=== PATIENT | male | born 1990 | race Caucasian/White ===

== ENCOUNTER 2021-08-05 00:33 | Emergency (ER) | payer OTHER ==
[~2021-08-05] VITALS: Ht 175.3 cm; Wt 98.5 kg
--- OUTSIDE RECORDS SUMMARY | 2021-08-05 00:40 | CCD ---
Author Author [facility] Organization [facility] Address Unknown Phone Unavailable Support Name Relationship Address Phone [facility] Next Of Kin [address] [place] [address] SHELIA PEREIRA Next Of Kin [address] [place] [address] [facility] E4 Next Of Kin [address] [place] [address] Unavailable [place] Next Of Kin Unknown [place] Next Of Kin Unknown Re-disclosure Warning The records that you are about to access may contain information from federally-assisted alcohol or drug abuse programs. If such information is present, then the following federally mandated warning applies: This information has been disclosed to you from records protected by federal confidentiality rules (42 CFR part 2). The federal rules prohibit you from making any further disclosure of this information unless further disclosure is expressly permitted by the written consent of the person to whom it pertains or as otherwise permitted by 42 CFR part 2. A general authorization for the release of medical or other information is NOT sufficient for this purpose. The Federal rules restrict any use of the information to criminally investigate or prosecute any alcohol or drug abuse patient.The records that you are about to access may contain highly sensitive health information, the redisclosure of which is protected by Article 27-F of the [place] Public Health law. If you continue you may have access to information: Regarding HIV / AIDS; Provided by facilities licensed or operated by the [facility] Office of Mental Health; or Provided by the [facility] Office for People With Developmental Disabilities. If such information is present, then the following [facility] mandated warning applies: This information has been disclosed to you from confidential records which are protected by state law. State law prohibits you from making any further disclosure of this information without the specific written consent of the person to whom it pertains, or as otherwise permitted by law. Any unauthorized further disclosure in violation of state law may result in a fine or fpc sentence or both. A general authorization for the release of medical or other information is NOT sufficient authorization for further disc losure. Family History Family Member Name Family Member Gender Family Member Status Date o f Status Description Data Source(s) Unknown Unknown Problem [facility] ([facility]) Medications No Information Insurance Providers Payer name Policy type / Coverage type Policy ID Covered alliance party ID Covered alliance party's relationship to samuel Policy Samuel Plan Information [employer] [id number] SP [id number] [place] [id number] 18 [id number] ADMINSTRATION -O/P [id number] 18 [id number] BCBS/Blue Card Commercial [id number] Self [id number] N REGIONAL CLAIMS DUC-O/P [id number] 18 [id number] Problems, Conditions, and Diagnoses No Information Surgeries/Procedures No Information Results ID Date Data Source 241 10/30/2020 12:00:00 AM EST [place] Name Value Range Interpretation Code Description Data Bonnie rce(s) Supporting Document(s) SARS-CoV2 Rapid Antigen Negative [facility] This lab was ordered by [facility] AN [facility] and reported by [facility]. Procedure Social History No Information
--- NOTE | 2021-08-05 02:02 | REPVR ---
PROCEDURE INFORMATION: Exam: CT Head Without Contrast Exam date and time: 08/05/2021 12:56 AM Age: 30 years old Clinical indication: Numbness TECHNIQUE: Imaging protocol: Computed tomography of the head without contrast. Radiation optimization: All CT scans at this facility use at least one of these dose optimization techniques: automated exposure control; mA and/or kV adjustment per patient size (includes targeted exams where dose is matched to clinical indication); or iterative reconstruction. COMPARISON: No relevant prior studies available. FINDINGS: Brain: There is no evidence for an acute large vessel territorial infarct, intracranial hemorrhage, mass, mass effect, or herniation. The cortical gyration pattern, basal ganglia, thalami, brainstem, and cerebellum are normal in appearance. Cerebral ventricles: No ventriculomegaly. Paranasal sinuses: Visualized sinuses are unremarkable. No fluid levels. Mastoid air cells: Visualized mastoid air cells are well-aerated. Bones/joints: Unremarkable. No acute fracture. Soft tissues: Unremarkable. IMPRESSION: No acute intracranial abnormality. Electronically signed by: Holger Blevins On 08/05/2021 02:02:16 AM
[2021-08-05] MEDS ORDERED: METAL LOCK LOOP XX ONE (02:17)
[2021-08-05] MEDS ORDERED: methylPREDNISolone 125MG 2ML VIAL IV ONE (06:35)
[2021-08-05] MEDS ORDERED: valACYclovir HCL 500 MG TAB PO ONE (06:35)
[2021-08-05] MEDS ORDERED: KETOROLAC 30 MG/ML 1ML VIAL IV ONE (06:40)
[2021-08-05 06:47] LABS: BASO % 0.5 % (0.0-1.0); EOS # 0.1 10^3/uL (0.0-0.5); EOS % 0.9 % (0.0-3.0); HEMATOCRIT 41.9 % (42.0-52.0); HEMOGLOBIN 14.1 g/dl (13.5-17.5); LYMPH # 1.4 10^3/uL (1.5-5.0); LYMPH % 21.6 % (24.0-44.0); MEAN CORPUSCULAR HEMOGLOBIN 29.6 pg (27.0-33.0); MEAN CORPUSCULAR HGB CONC 33.7 g/dl (32.0-36.5); MEAN CORPUSCULAR VOLUME 87.8 fl (80.0-96.0); MONO # 0.6 10^3/uL (0.0-0.8); MONO % 9.3 % (2.0-8.0); NEUTROPHILS # 4.5 10^3/uL (1.5-8.5); NEUTROPHILS % 67.5 % (36.0-66.0); PLATELET COUNT, AUTOMATED 375 10^3/uL (150-450); RED BLOOD COUNT 4.77 10^6/uL (4.30-6.10); WHITE BLOOD COUNT 6.7 10^3/uL (4.0-10.0)
[2021-08-05 07:05] LABS: ERYTHROCYTE SEDIMENTATION RATE 24 mm/hr (0-15)
--- OUTSIDE RECORDS SUMMARY | 2021-08-05 07:19 | CCD ---
Author Author [facility] Organization [facility] Address Unknown Phone Unavailable Support Name Relationship Address Phone [employer] [place] [address] [facility] Next Of Kin [address] [place] [address] SHELIA PEREIRA Next Of Kin [address] [place] [address] [facility] E4 Next Of Kin [address] [place] [address] Unavailable AISLINNYOLIY Next Of Kin Unknown AISLINNYOLIY Next Of Kin Unknown Re-disclosure Warning The [...] is protected by Article 27-F of the [facility] Public Health law. If you continue you may have access to information: Regarding HIV / AIDS; Provided by facilities licensed or operated by the [facility] Office of Mental Health; or Provided by the [facility] Office for People With Developmental Disabilities. If such information is present, then the following [facility] mandated warning applies: This information has been [...] law may result in a fine or custodial sentence or both. A general authorization for [...] type / Coverage type Policy ID Covered republican ID Covered republican's relationship to samuel Policy Samuel Plan Information [employer] [id number] SP [id number] [employer] [id number] SP [id number] [employer] [place] [id number] 18 [id number] ADMINSTRATION -O/P [id number] 18 [id number] BCBS/Blue Card Commercial [id number] Self [id number] N REGIONAL CLAIMS DUC-O/P [id number] 18 [id number] Problems, Conditions, and Diagnoses No Information Surgeries/Procedures No Information Results ID Date Data Source 241 10/30/2020 12:00:00 AM EST [facility] Name Value Range Interpretation Code Description Data Bonnie rce(s) Supporting Document(s) SARS-CoV2 Rapid Antigen Negative [facility] This lab was ordered by [facility] and reported by [facility]. Procedure Social History No Information
[2021-08-05 08:10] VITALS: BP 159/77
[2021-08-05] MEDS ORDERED: PRED20TA PO (08:16)
[2021-08-05] MEDS ORDERED: VALA1TAB5 PO (08:17)
[2021-08-05] MEDS ORDERED: NAPR-837 PO (08:17)
[2021-08-05] MEDS ORDERED: DOXY-443 PO (08:39)
[2021-08-07 14:12] LABS: Lyme Disease IgG Ab 18 kDa Ban Present (.); Lyme Disease IgG Ab 23 kDa Ban Present (.); Lyme Disease IgG Ab 28 kDa Ban Absent (.); Lyme Disease IgG Ab 30 kDa Ban Absent (.); Lyme Disease IgG Ab 39 kDa Ban Present (.); Lyme Disease IgG Ab 41 kDa Ban Present (.); Lyme Disease IgG Ab 45 kDa Ban Absent (.); Lyme Disease IgG Ab 58 kDa Ban Present (.); Lyme Disease IgG Ab 66 kDa Ban Absent (.); Lyme Disease IgG Ab 93 kDa Ban Absent (.); Lyme Disease IgG West Blot Int Positive (.); Lyme Disease IgG/IgM Antibodie 1.95 ISR (0.00-0.90); Lyme Disease IgM Ab 23 kDa Ban Present (.); Lyme Disease IgM Ab 39 kDa Ban Present (.); Lyme Disease IgM Ab 41 kDa Ban Present (.); Lyme Disease IgM Ab Quantitati 8.07 index (0.00-0.79); Lyme Disease IgM West Blot Int Positive (.)
== END 2021-08-05 08:28 | disposition home or self-care (01) ==
LOC: M ED 00:33
DX: G51.0 Bell's palsy (principal); M54.2 Cervicalgia; R21 Rash and other nonspecific skin eruption; R47.81 Slurred speech; R51.9 Headache, unspecified; F17.200 Nicotine dependence, unspecified, uncomplicated
CPT/HCPCS: 70450; 80047; 85025; 85652; 86140; 86617; 87798; 96374; 96375; 99284; J1885; J2930

== ENCOUNTER 2021-08-12 10:55 | Outpatient (CLI) | payer OTHER ==
[~2021-08-12] VITALS: Ht 175.3 cm; Wt 94.1 kg
[~2021-08-12 10:55] MED LIST: DOXY-443 PO; NAPR-837 PO; PRED20TA PO; VALA1TAB5 PO
[2021-08-12 11:03] VITALS: BP 135/66
[2021-08-12] MEDS ORDERED: cefTRIAXone SOD 2 GM in D5W MINI-BAG PLUS 50 ML IV ONE (11:05)
[2021-08-12 12:30] VITALS: BP 131/67
== END 2021-08-12 12:30 | disposition home or self-care (01) ==
LOC: M INFU 10:55
PROVIDERS: ATTEND Internal Medicine Infectious Disease
DX: G51.0 Bell's palsy (principal); A69.20 Lyme disease, unspecified
CPT/HCPCS: 96365; J0696

== ENCOUNTER 2021-08-13 11:32 | Outpatient (CLI) | payer OTHER ==
[~2021-08-13] VITALS: Ht 175.3 cm; Wt 98.5 kg
[~2021-08-13 11:32] MED LIST changes: +cefTRIAXone SOD 2 GM in D5W MINI-BAG PLUS 50 ML IV SCH
[2021-08-13 11:35] VITALS: BP 138/84
[2021-08-13 12:45] VITALS: BP 135/81
[2021-08-14] MEDS ORDERED: CEFT1INJ5 IV (08:37)
== END 2021-08-13 12:45 | disposition home or self-care (01) ==
LOC: M INFU 11:32
PROVIDERS: ATTEND Internal Medicine Infectious Disease
DX: A69.20 Lyme disease, unspecified (principal); G51.0 Bell's palsy
CPT/HCPCS: 96365; J0696

== ENCOUNTER 2021-08-14 08:07 | Outpatient (CLI) | payer OTHER ==
[~2021-08-14] VITALS: Ht 175.3 cm; Wt 95.2 kg
[~2021-08-14 08:07] MED LIST changes: -CEFT1INJ5 IV
[2021-08-14] MEDS ORDERED: CEFT1INJ5 IV (08:37)
[2021-08-14] MEDS ORDERED: cefTRIAXone SOD 2 GM in D5W MINI-BAG PLUS 50 ML IV ONE (10:00)
[2021-08-14] MEDS ORDERED: SODIUM CHLORIDE 0.9% INJ 10 ML SYR IV PRN (10:55)
[2021-08-14 11:05] VITALS: BP 138/84
[2021-08-14] MEDS ORDERED: SODIUM CHLORIDE 0.9% INJ 10 ML SYR IV SCH (18:00)
== END 2021-08-14 11:05 | disposition home or self-care (01) ==
LOC: M INFU 08:07
PROVIDERS: ATTEND Internal Medicine Infectious Disease
DX: A69.20 Lyme disease, unspecified (principal); G51.0 Bell's palsy
CPT/HCPCS: 96365; 96523; J0696; J1642

== ENCOUNTER → 2021-08-14 | Outpatient (CLI) | payer OTHER ==
[~2021-08-14] MED LIST changes: +CEFT1INJ5 IV; -cefTRIAXone SOD 2 GM in D5W MINI-BAG PLUS 50 ML IV SCH
[2021-08-14 09:20] VITALS: BP 122/79
--- NOTE | 2021-08-14 17:27 | REP ---
PROCEDURE NAME: MIDLINE INSERTION W/ SITERITE CLINICAL INFORMATION: LYME DZ W/ BELS PALSY MIDLINE INSERTION. COMPARISON: None. PROCEDURE DESCRIPTION: The procedure was performed by EMIL West, under the direct supervision of Dr. Orlando. The risks and benefits of the procedure were explained to the patient and an informed consent was obtained both verbally and written. Directly prior to the start of the procedure a formal time-out was completed in the procedure room. The left basilic vein was localized using ultrasound guidance. The skin was prepped and draped in sterile fashion. Three mL of 1% lidocaine 10 mg/mL was used as a local anesthetic. Using ultrasound guidance the left basilic vein was cannulated, and a 0.018 guidewire was inserted. The needle was removed and a 5 Urdu dilator and peel-away sheath was inserted over the guidewire. A 4.5 Urdu single lumen catheter was cut to a length of 16.5 cm. The dilator was removed and the catheter was inserted over the guidewire. The peel-away sheath was removed and the catheter was flushed with heparinized saline as per hospital protocol. The catheter was affixed to the skin and a sterile dressing was applied. The patient tolerated the procedure well and there were no immediate complications. CONCLUSION: Mid line insertion into the left basilic vein. <Electronically signed by Vivi Pickett > 08/14/21 [id number] <Electronically signed by Lalito Orlando > 08/14/21 [id number]
== END ==
LOC: M IRPRO 08:09
PROVIDERS: ATTEND Internal Medicine Infectious Disease
DX: A69.20 Lyme disease, unspecified (principal); G51.0 Bell's palsy
CPT/HCPCS: 36571; 76937; C1751

== ENCOUNTER → 2021-08-22 | Outpatient (REF) | payer OTHER ==
[~2021-08-22] MED LIST changes: +CEFT1INJ5 IV
[2021-08-22 17:34] LABS: BASO # 0.1 10^3/uL (0.0-0.2); BASO % 0.9 % (0.0-1.0); EOS # 0.2 10^3/uL (0.0-0.5); HEMATOCRIT 43.6 % (42.0-52.0); HEMOGLOBIN 14.9 g/dl (13.5-17.5); LYMPH # 2.5 10^3/uL (1.5-5.0); MEAN CORPUSCULAR HEMOGLOBIN 29.9 pg (27.0-33.0); MEAN CORPUSCULAR HGB CONC 34.2 g/dl (32.0-36.5); MEAN CORPUSCULAR VOLUME 87.4 fl (80.0-96.0); MONO # 0.9 10^3/uL (0.0-0.8); MONO % 11.5 % (2.0-8.0); NEUTROPHILS # 3.8 10^3/uL (1.5-8.5); NEUTROPHILS % 51.5 % (36.0-66.0); PLATELET COUNT, AUTOMATED 314 10^3/uL (150-450); RED BLOOD COUNT 4.99 10^6/uL (4.30-6.10); WHITE BLOOD COUNT 7.4 10^3/uL (4.0-10.0)
[2021-08-22 17:58] LABS: ALBUMIN 3.8 GM/DL (3.2-5.2); ALT/SGPT 34 U/L (12-78); BILIRUBIN,TOTAL 0.7 MG/DL (0.2-1.0); BLOOD UREA NITROGEN 11 MG/DL (7-18); CALCIUM LEVEL 9.1 MG/DL (8.5-10.1); CARBON DIOXIDE LEVEL 31 MEQ/L (21-32); CHLORIDE LEVEL 102 MEQ/L (98-107); CREATININE FOR GFR 0.94 MG/DL (0.70-1.30); GLOMERULAR FILTRATION RATE > 60.0 (>60); GLUCOSE, FASTING 84 MG/DL (70-100); POTASSIUM SERUM 3.8 MEQ/L (3.5-5.1); SODIUM LEVEL 138 MEQ/L (136-145); TOTAL PROTEIN 7.2 GM/DL (6.4-8.2)
[2021-08-22 18:48] LABS: ERYTHROCYTE SEDIMENTATION RATE 5 mm/hr (0-15)
== END ==
LOC: M LAB REF 17:21
PROVIDERS: ATTEND Internal Medicine Infectious Disease
DX: A69.20 Lyme disease, unspecified (principal)

== ENCOUNTER 2021-09-15 10:15 | Outpatient (RCR) | payer OTHER | END 2021-09-16 | LOC: M PT 10:15 | PROVIDERS: ATTEND Internal Medicine Infectious Disease | DX: G51.0 Bell's palsy (principal) ==

== ENCOUNTER 2021-10-26 12:09 | Inpatient (IN) | payer OTHER ==
[~2021-10-26] VITALS: Ht 177.8 cm; Wt 88.6 kg
[2021-10-26] MEDS ORDERED: PROZ40CA PO (12:25)
[2021-10-26 13:47] LABS: HEMATOCRIT 46.5 % (42.0-52.0); MEAN CORPUSCULAR HEMOGLOBIN 29.9 pg (27.0-33.0); MEAN CORPUSCULAR HGB CONC 34.4 g/dl (32.0-36.5); MEAN CORPUSCULAR VOLUME 86.8 fl (80.0-96.0); PLATELET COUNT, AUTOMATED 308 10^3/uL (150-450); RED BLOOD COUNT 5.36 10^6/uL (4.30-6.10)
[2021-10-26 14:04] LABS: AMPHETAMINES LEVEL URINE NEGATIVE (NEGATIVE); BARBITURATES URINE NEGATIVE (NEGATIVE); BENZODIAZEPINES URINE NEGATIVE (NEGATIVE); CANNABINOIDS URINE NEGATIVE (NEGATIVE); COCAINE METABOLITE URINE NEGATIVE (NEGATIVE); METHADONE URINE NEGATIVE (NEGATIVE); OPIATES URINE NEGATIVE (NEGATIVE); PHENCYCLIDINE URINE NEGATIVE (NEGATIVE)
[2021-10-26 14:30] LABS: RSV AMPLIFICATION NEGATIVE (NEGATIVE)
[2021-10-26 14:34] LABS: ALBUMIN 4.2 GM/DL (3.2-5.2); ALT/SGPT 46 U/L (12-78); BILIRUBIN,DIRECT < 0.1 MG/DL (0.0-0.2); BILIRUBIN,TOTAL 0.4 MG/DL (0.2-1.0); BLOOD UREA NITROGEN 8 MG/DL (7-18); CALCIUM LEVEL 9.3 MG/DL (8.5-10.1); CARBON DIOXIDE LEVEL 30 MEQ/L (21-32); CHLORIDE LEVEL 109 MEQ/L (98-107); CREATININE FOR GFR 0.96 MG/DL (0.70-1.30); ETHYL ALCOHOL (ETHANOL) 0.125 % (0.000-0.010); GLOMERULAR FILTRATION RATE > 60.0 (>60); GLUCOSE, FASTING 98 MG/DL (70-100); POTASSIUM SERUM 4.8 MEQ/L (3.5-5.1); SALICYLATE LEVEL 2.2 MG/DL (5.0-30.0); SODIUM LEVEL 146 MEQ/L (136-145)
[2021-10-26 14:35] LABS: ACETAMINOPHEN LEVEL < 2.0 UG/ML (10.0-30.0)
[2021-10-26] MEDS ORDERED: FLUO20CA22 PO (20:24)
[2021-10-26] MEDS ORDERED: HOME MED LIST COMPLETE! XX SCH (20:25)
[2021-10-27] MEDS ORDERED: HOME MED LIST COMPLETE! XX SCH (03:50)
[2021-10-27] MEDS ORDERED: LORazepam 2 MG TAB PO ONE (07:45)
[2021-10-27] MEDS: THIAMINE 100 MG TAB PO SCH ×2 (09:00→20:47)
[2021-10-27] MEDS ORDERED: MOM 30ML SUSPENSION UDC PO PRN (13:40)
[2021-10-27] MEDS ORDERED: MAALOX 30 ML SUSP *UDC PO PRN (13:40)
[2021-10-27] MEDS ORDERED: LORazepam 2 MG TAB PO PRN (13:40)
[2021-10-27] MEDS ORDERED: IBUPROFEN 400MG TAB PO PRN (13:40)
[2021-10-27] MEDS ORDERED: traZODone 50 MG TAB PO PRN (13:40)
[2021-10-27] MEDS ORDERED: METAL LOCK LOOP XX ONE (15:59)
[2021-10-27] MEDS: FOLIC ACID 1 MG TAB PO SCH (20:46)
[2021-10-27] MEDS: MULTIVITAMINS/MINERALS THERAP 1 TAB PO SCH (20:47)
[2021-10-28 06:45] VITALS: BP 142/62
[2021-10-28 06:47] VITALS: BP 145/62
[2021-10-28] MEDS: FOLIC ACID 1 MG TAB PO SCH (08:38)
[2021-10-28] MEDS: THIAMINE 100 MG TAB PO SCH ×2 (08:38→21:50)
[2021-10-28] MEDS: MULTIVITAMINS/MINERALS THERAP 1 TAB PO SCH (08:38)
[2021-10-28] MEDS: FLUoxetine 20 MG CAP PO SCH (12:45)
[2021-10-28 18:14] VITALS: BP 118/75
[2021-10-28] MEDS ORDERED: hydrOXYzine 50 MG TAB PO PRN (19:00)
[2021-10-28 20:30] VITALS: BP 142/84
[2021-10-28 20:31] VITALS: BP 142/84
[2021-10-29 06:00] VITALS: BP 138/65
[2021-10-29] MEDS: FOLIC ACID 1 MG TAB PO SCH (08:09)
[2021-10-29] MEDS: THIAMINE 100 MG TAB PO SCH (08:09)
[2021-10-29] MEDS: FLUoxetine 20 MG CAP PO SCH (08:09)
[2021-10-29] MEDS: MULTIVITAMINS/MINERALS THERAP 1 TAB PO SCH (08:09)
[2021-10-29] MEDS ORDERED: FLUO20CA22 PO (09:00)
== END 2021-10-29 12:30 | disposition home or self-care (01) | DRG 751 ==
LOC: M ED 12:09 → M ED INP 10-27 11:36 → M PSY 10-27 17:52
PROVIDERS: ADMIT Psychiatry & Neurology Psychiatry; ATTEND Psychiatry & Neurology Psychiatry
DX: F32.1 Major depressive disorder, single episode, moderate (principal); F17.290 Nicotine dependence, other tobacco product, uncomplicated; F17.220 Nicotine dependence, chewing tobacco, uncomplicated; F43.10 Post-traumatic stress disorder, unspecified; Z63.5 Disruption of family by separation and divorce; Z79.899 Other long term (current) drug therapy